=== PATIENT | male | born 1950 | race Caucasian/White ===

== ENCOUNTER 2019-04-11 05:07 | Observation (INO) ==
[2019-04-11] MEDS ORDERED: ONDANSETRON 4 MG/2 ML VIAL IV PRN (08:11)
[2019-04-11] MEDS ORDERED: ACETAMINOPHEN 325 MG TABLET PO PRN (08:11)
[2019-04-11] MEDS: ENOXAPARIN 100 MG/ML SYRINGE SUBCUT SCH ×2 (09:55→09:59)
[2019-04-11] MEDS: DILTIAZEM CD 240 MG CAPSULE PO SCH (09:57)
[2019-04-11] MEDS: PANTOPRAZOLE 40 MG TABLET PO SCH (09:58)
[2019-04-11] MEDS: METOPROLOL TARTRATE 50 MG TABLET PO SCH ×2 (09:58→21:16)
[2019-04-11] MEDS ORDERED: ALBUTEROL/IPRATROPIUM 3 ML NEB RESP TX PRN (20:14)
[2019-04-12 06:58] LABS: Basophils % 0.3 % (0.0-0.8); Eosinophils % 0.4 % (0.00-10.9); Hematocrit 26.6 VOL% (42.0-52.0); Hemoglobin 8.3 GM/DL (14.0-18.0); Immature Granulocytes % 6.9 %; Immature Granulocytes Absolute 0.75 #; Lymphocytes # 1.4 10*3/uL (1.4-4.0); Lymphocytes % 12.7 % (21.2-54.2); Mean Corpuscular HGB Conc 31.2 GM/DL (32-36); Mean Corpuscular Volume 94.7 FL (87-102); Mean Platelet Volume 11.1 FL (9.6-12.0); Monocytes % 20.4 % (1.7-12.7); NRBC # 0.12 10*3/uL; Neutrophils % 59.3 % (38.7-73.9); Platelet Count 92 T/CUMM (130-400); Red Blood Count 2.81 MC/CUMM (3.8-5.5); Red Cell Distribution Width 19.9 % (9.3-17.3); White Blood Count 10.9 T/CUMM (4-12)
[2019-04-12 07:18] LABS: Band Neutrophils 1 % (0-10); Eosinophils 1 % (0-10); Hypochromasia 1+; Lymphocytes 17 % (20-55); Platelet Estimate Decreased; Segmented Neutrophils 65 % (50-85); Total Cells Counted 100
[2019-04-12 07:29] LABS: Calcium 8.5 MG/DL (8.5-10.1)
[2019-04-12] MEDS: METOPROLOL TARTRATE 50 MG TABLET PO SCH ×2 (08:42→21:37)
[2019-04-12] MEDS: PANTOPRAZOLE 40 MG TABLET PO SCH (08:42)
[2019-04-12] MEDS: DILTIAZEM CD 240 MG CAPSULE PO SCH (08:42)
[2019-04-12 09:00] LABS: % Iron Saturation 28.7 % (18-50); Ferritin 342.2 ng/ml (26-388)
[2019-04-12] MEDS ORDERED: ASPIRIN EC 81 MG TABLET PO SCH (09:00)
[2019-04-12] MEDS ORDERED: RIVAROXABAN 10 MG TABLET PO SCH (09:00)
[2019-04-12] MEDS ORDERED: SODIUM CHLORIDE 0.9% 1,000 ML IV PRN (16:04)
[2019-04-13 06:25] LABS: Basophils % 0.3 % (0.0-0.8); Eosinophils # 0.1 10*3/uL (0.0-0.87); Eosinophils % 0.4 % (0.00-10.9); Hematocrit 28.9 VOL% (42.0-52.0); Hemoglobin 9.5 GM/DL (14.0-18.0); Immature Granulocytes % 6.5 %; Immature Granulocytes Absolute 0.82 #; Lymphocytes # 1.7 10*3/uL (1.4-4.0); Lymphocytes % 13.7 % (21.2-54.2); Mean Corpuscular HGB Conc 32.9 GM/DL (32-36); Mean Corpuscular Volume 93.5 FL (87-102); Mean Platelet Volume 10.8 FL (9.6-12.0); Monocytes % 23.5 % (1.7-12.7); NRBC # 0.13 10*3/uL; Neutrophils % 55.6 % (38.7-73.9); Red Blood Count 3.09 MC/CUMM (3.8-5.5); Red Cell Distribution Width 19.7 % (9.3-17.3); White Blood Count 12.7 T/CUMM (4-12)
[2019-04-13 06:28] LABS: Platelet Count 88 T/CUMM (130-400)
[2019-04-13 06:43] LABS: Calcium 8.1 MG/DL (8.5-10.1); Osmolality,Calculated 274.8 MOS/KG (273-304)
[2019-04-13 07:13] LABS: Band Neutrophils 2 % (0-10); Eosinophils 1 % (0-10); Hypochromasia 1+; Lymphocytes 16 % (20-55); Platelet Estimate Decreased; Segmented Neutrophils 62 % (50-85); Total Cells Counted 100
[2019-04-13] MEDS: PANTOPRAZOLE 40 MG TABLET PO SCH (09:24)
[2019-04-13] MEDS: METOPROLOL TARTRATE 50 MG TABLET PO SCH (09:24)
[2019-04-13] MEDS: DILTIAZEM CD 240 MG CAPSULE PO SCH (09:24)
[2019-04-13 12:23] VITALS: BP 125/65
== END 2019-04-13 14:36 | disposition home or self-care (01) ==
LOC: INTOOBSV 06:33 → N.TELES 06:33 → SUATTDRO 06:33
PROVIDERS: ADMIT Internal Medicine; ATTEND Internal Medicine

== ENCOUNTER 2019-05-03 11:54 | Inpatient (IN) ==
[2019-05-03] MEDS ORDERED: DILTIAZEM 50 MG/10 ML VIAL IV STA (12:25)
[2019-05-03] MEDS ORDERED: methylPREDNISolone SOD SUC 125 MG/2 ML VIAL IV STA (12:25)
[2019-05-03] MEDS ORDERED: ASPIRIN 325 MG TABLET PO STA (12:25)
[2019-05-03] MEDS ORDERED: ALBUTEROL/IPRATROPIUM 3 ML NEB RESP TX STA (12:25)
[2019-05-03] MEDS ORDERED: FUROSEMIDE 20 MG/2 ML VIAL IV STA (12:25)
[2019-05-03 12:31] LABS: Basophils % 0.3 % (0.0-0.8); Eosinophils % 0.2 % (0.00-10.9); Hematocrit 27.3 VOL% (42.0-52.0); Hemoglobin 8.6 GM/DL (14.0-18.0); Immature Granulocytes % 6.8 %; Immature Granulocytes Absolute 0.89 #; Lymphocytes # 1.5 10*3/uL (1.4-4.0); Lymphocytes % 11.3 % (21.2-54.2); Mean Corpuscular HGB Conc 31.5 GM/DL (32-36); Mean Corpuscular Volume 94.5 FL (87-102); Mean Platelet Volume 10.6 FL (9.6-12.0); Monocytes % 17.7 % (1.7-12.7); NRBC # 0.13 10*3/uL; Neutrophils % 63.7 % (38.7-73.9); Platelet Count 100 T/CUMM (130-400); Red Blood Count 2.89 MC/CUMM (3.8-5.5); Red Cell Distribution Width 19.5 % (9.3-17.3)
[2019-05-03 12:34] LABS: INR 1.3; PT Patient Result 14.2 SECS (9.6-12.2)
[2019-05-03 12:54] LABS: Albumin 2.8 G/DL (3.4-5.0); Bilirubin,Total 1.7 MG/DL (0.2-1.0); Osmolality,Calculated 279.4 MOS/KG (273-304); Thyroid Stimulating Hormone 3.62 uIU/ml (0.358-3.74); Total Protein 7.2 G/DL (6.4-8.3)
[2019-05-03 13:03] LABS: Anisocytosis 2+; Atypical Lymphocytes Few; Band Neutrophils 9 % (0-10); Lymphocytes 14 % (20-55); Macrocytosis Slight; Metamyelocytes 4 %; Nucleated Red Blood Cells 1 (0-5); Platelet Estimate Adequate; Segmented Neutrophils 59 % (50-85); Total Cells Counted 100
[2019-05-03] MEDS ORDERED: POTASSIUM CHLORIDE 20 MEQ TABLET PO STA (13:15)
[2019-05-03] MEDS ORDERED: cefTRIAXone 1,000 MG in SODIUM CHLORIDE 0.9% 100 ML IV STA (13:25)
[2019-05-03 13:26] LABS: Apearance,Urine CLEAR (Clear); Bilirubin,Urine Negative (Negative); Blood, Urine Small mg/dL (Negative); Glucose,Urine (UA) Negative (Negative); Ketones,Urine Negative (Negative); Mucus,Urine Occasional /LPF (Occasional); Nitrite,Urine Negative (Negative); Protein,Urine Negative; RBC,Urine 2 /HPF (0-4); Urine Color Yellow (Yellow); WBC,Urine <1 /HPF (0-6)
[2019-05-03] MEDS ORDERED: dilTIAZem Drip 125 MG/125 ML PREMIX IV ONE (13:28)
[2019-05-03] MEDS ORDERED: ENOXAPARIN 100 MG/ML SYRINGE SUBCUT STA (13:41)
[2019-05-03] MEDS ORDERED: SODIUM CHLORIDE 0.9% 2,400 ML IV ONE (13:43)
[2019-05-03] MEDS ORDERED: ALBUTEROL 2.5 MG/3 ML NEB RESP TX PRN (13:43)
[2019-05-03] MEDS ORDERED: MAGNESIUM SULF RIDER 2 GM in PREMIX 1 EACH IV PRN (13:51)
[2019-05-03] MEDS ORDERED: MAGNESIUM SULF RIDER 4 GM in PREMIX 1 EACH IV PRN (13:51)
[2019-05-03] MEDS ORDERED: ZALEPLON 5 MG CAPSULE PO PRN (13:52)
[2019-05-03] MEDS ORDERED: diphenhydrAMINE CAP 25 MG CAPSULE PO PRN (13:52)
[2019-05-03] MEDS ORDERED: NICOTINE 21 MG/24 HR PATCH TRANSDERM PRN (13:52)
[2019-05-03] MEDS ORDERED: guaiFENesin/DM ER 600-30 MG TABLET PO PRN (13:52)
[2019-05-03] MEDS ORDERED: ACETAMINOPHEN 325 MG TABLET PO PRN (13:52)
[2019-05-03] MEDS ORDERED: traZODone 50 MG TABLET PO PRN (13:52)
[2019-05-03] MEDS ORDERED: ONDANSETRON 4 MG/2 ML VIAL IV PRN (13:52)
[2019-05-03] MEDS: dilTIAZem Drip 125 MG/125 ML PREMIX IV SCH ×2 (14:00→21:48)
[2019-05-03] MEDS: HEPARIN 5,000 UNIT/1 ML VIAL SUBCUT SCH ×2 (15:38→21:49)
[2019-05-03] MEDS: AZITHROMYCIN INJ 500 MG in SODIUM CHLORIDE 0.9% 250 ML IV SCH (15:39)
[2019-05-03] MEDS: ALBUTEROL/IPRATROPIUM 3 ML NEB RESP TX SCH (19:27)
[2019-05-03] MEDS: DOCUSATE SODIUM 100 MG CAPSULE PO SCH (20:22)
[2019-05-03] MEDS: methylPREDNISolone SOD SUC 40 MG/1 ML VIAL IV SCH (20:22)
[2019-05-03] MEDS: METOPROLOL TARTRATE 50 MG TABLET PO SCH (20:22)
[2019-05-04] MEDS: ALBUTEROL/IPRATROPIUM 3 ML NEB RESP TX SCH ×4 (00:13→19:23)
[2019-05-04] MEDS: methylPREDNISolone SOD SUC 40 MG/1 ML VIAL IV SCH ×4 (01:05→21:49)
[2019-05-04 05:56] LABS: Basophils % 0.3 % (0.0-0.8); Hematocrit 24.7 VOL% (42.0-52.0); Hemoglobin 7.7 GM/DL (14.0-18.0); Immature Granulocytes % 7.9 %; Immature Granulocytes Absolute 1.26 #; Lymphocytes # 0.9 10*3/uL (1.4-4.0); Lymphocytes % 5.6 % (21.2-54.2); Mean Corpuscular HGB Conc 31.2 GM/DL (32-36); Mean Corpuscular Volume 93.9 FL (87-102); Mean Platelet Volume 10.8 FL (9.6-12.0); Monocytes % 10.1 % (1.7-12.7); NRBC # 0.11 10*3/uL; Neutrophils % 76.1 % (38.7-73.9); Platelet Count 89 T/CUMM (130-400); Red Blood Count 2.63 MC/CUMM (3.8-5.5); Red Cell Distribution Width 19.3 % (9.3-17.3)
[2019-05-04 06:15] LABS: Band Neutrophils 1 % (0-10); Hypochromasia 1+; Lymphocytes 6 % (20-55); Nucleated Red Blood Cells 1 (0-5); Ovalocytes Slight; Platelet Estimate Decreased; Segmented Neutrophils 88 % (50-85); Total Cells Counted 100
[2019-05-04 06:18] LABS: Albumin 2.8 G/DL (3.4-5.0); Bilirubin,Total 1.8 MG/DL (0.2-1.0); Calcium 8.1 MG/DL (8.5-10.1); Osmolality,Calculated 285.8 MOS/KG (273-304); Total Protein 7.5 G/DL (6.4-8.3)
[2019-05-04] MEDS: HEPARIN 5,000 UNIT/1 ML VIAL SUBCUT SCH ×3 (06:32→22:00)
[2019-05-04] MEDS ORDERED: SODIUM CHLORIDE 0.9% 1,000 ML IV PRN (06:52)
[2019-05-04] MEDS ORDERED: FUROSEMIDE 20 MG/2 ML VIAL IV SCH (07:00)
[2019-05-04] MEDS: DOCUSATE SODIUM 100 MG CAPSULE PO SCH ×2 (09:20→21:50)
[2019-05-04] MEDS: ASPIRIN EC 81 MG TABLET PO SCH (09:20)
[2019-05-04] MEDS: METOPROLOL TARTRATE 50 MG TABLET PO SCH (09:20)
[2019-05-04] MEDS: DILTIAZEM CD 240 MG CAPSULE PO SCH (09:21)
[2019-05-04] MEDS: PANTOPRAZOLE 40 MG TABLET PO SCH (09:21)
[2019-05-04] MEDS: dilTIAZem Drip 125 MG/125 ML PREMIX IV SCH (13:07)
[2019-05-04] MEDS: AZITHROMYCIN INJ 500 MG in SODIUM CHLORIDE 0.9% 250 ML IV SCH (13:12)
[2019-05-04] MEDS: METOPROLOL TARTRATE 100 MG TABLET PO SCH (21:50)
[2019-05-05] MEDS: ALBUTEROL/IPRATROPIUM 3 ML NEB RESP TX SCH ×4 (00:20→19:50)
[2019-05-05] MEDS: methylPREDNISolone SOD SUC 40 MG/1 ML VIAL IV SCH ×4 (02:05→20:08)
[2019-05-05] MEDS: dilTIAZem Drip 125 MG/125 ML PREMIX IV SCH ×2 (04:00→15:09)
[2019-05-05 04:43] LABS: Basophils # 0.1 10*3/uL (0.0-0.2); Basophils % 0.3 % (0.0-0.8); Hematocrit 29.2 VOL% (42.0-52.0); Hemoglobin 9.3 GM/DL (14.0-18.0); Immature Granulocytes % 7.7 %; Immature Granulocytes Absolute 2.34 #; Lymphocytes # 1.2 10*3/uL (1.4-4.0); Lymphocytes % 3.8 % (21.2-54.2); Mean Corpuscular HGB Conc 31.8 GM/DL (32-36); Mean Corpuscular Volume 92.4 FL (87-102); Mean Platelet Volume 10.8 FL (9.6-12.0); Monocytes % 12.8 % (1.7-12.7); NRBC # 0.28 10*3/uL; Neutrophils % 75.4 % (38.7-73.9); Platelet Count 103 T/CUMM (130-400); Red Blood Count 3.16 MC/CUMM (3.8-5.5); Red Cell Distribution Width 19.4 % (9.3-17.3); White Blood Count 30.3 T/CUMM (4-12)
[2019-05-05 05:15] LABS: Albumin 2.9 G/DL (3.4-5.0); Bilirubin,Total 2.3 MG/DL (0.2-1.0); Calcium 8.4 MG/DL (8.5-10.1); Osmolality,Calculated 286.8 MOS/KG (273-304); Total Protein 7.2 G/DL (6.4-8.3)
[2019-05-05 05:22] LABS: Band Neutrophils 1 % (0-10); Hypochromasia Slight; Lymphocytes 2 % (20-55); Nucleated Red Blood Cells 2 (0-5); Platelet Estimate Decreased; Segmented Neutrophils 89 % (50-85); Total Cells Counted 100
[2019-05-05] MEDS: HEPARIN 5,000 UNIT/1 ML VIAL SUBCUT SCH ×3 (06:15→21:40)
[2019-05-05] MEDS: VANCOMYCIN INJ 1,250 MG in SODIUM CHLORIDE 0.9% 250 ML IV SCH ×2 (09:56→20:10)
[2019-05-05] MEDS: METOPROLOL TARTRATE 100 MG TABLET PO SCH ×2 (10:10→21:40)
[2019-05-05] MEDS: DILTIAZEM CD 240 MG CAPSULE PO SCH (10:10)
[2019-05-05] MEDS: PANTOPRAZOLE 40 MG TABLET PO SCH (10:11)
[2019-05-05] MEDS: ASPIRIN EC 81 MG TABLET PO SCH (10:11)
[2019-05-05] MEDS: DOCUSATE SODIUM 100 MG CAPSULE PO SCH ×2 (10:11→21:40)
[2019-05-05] MEDS: cefTRIAXone 1,000 MG in SYRINGE 1 EACH IV SCH (15:15)
[2019-05-05] MEDS: AZITHROMYCIN INJ 500 MG in SODIUM CHLORIDE 0.9% 250 ML IV SCH (15:17)
[2019-05-06] MEDS: ALBUTEROL/IPRATROPIUM 3 ML NEB RESP TX SCH ×4 (00:56→19:55)
[2019-05-06] MEDS: methylPREDNISolone SOD SUC 40 MG/1 ML VIAL IV SCH ×3 (02:06→13:55)
[2019-05-06] MEDS: HEPARIN 5,000 UNIT/1 ML VIAL SUBCUT SCH ×3 (06:05→21:17)
[2019-05-06 06:36] LABS: Basophils # 0.2 10*3/uL (0.0-0.2); Basophils % 0.4 % (0.0-0.8); Hematocrit 33.3 VOL% (42.0-52.0); Hemoglobin 10.4 GM/DL (14.0-18.0); Immature Granulocytes % 9.3 %; Lymphocytes # 1.1 10*3/uL (1.4-4.0); Mean Corpuscular HGB Conc 31.2 GM/DL (32-36); Mean Corpuscular Volume 93.8 FL (87-102); Mean Platelet Volume 11.1 FL (9.6-12.0); Monocytes % 14.3 % (1.7-12.7); NRBC # 0.47 10*3/uL; Platelet Count 132 T/CUMM (130-400); Red Blood Count 3.55 MC/CUMM (3.8-5.5); Red Cell Distribution Width 20.1 % (9.3-17.3); White Blood Count 37.8 T/CUMM (4-12)
[2019-05-06 07:00] LABS: Bilirubin,Total 1.8 MG/DL (0.2-1.0); Calcium 8.5 MG/DL (8.5-10.1); Osmolality,Calculated 293.5 MOS/KG (273-304); Total Protein 7.5 G/DL (6.4-8.3)
[2019-05-06 07:00] LABS: Band Neutrophils 1 % (0-10); Eosinophils 1 % (0-10); Hypochromasia Slight; Lymphocytes 4 % (20-55); Nucleated Red Blood Cells 4 (0-5); Segmented Neutrophils 81 % (50-85); Total Cells Counted 100
[2019-05-06 07:19] LABS: Folate 6.9 NG/ML (5.4-24.0); Vitamin B12 > 2000 PG/ML (211-911)
[2019-05-06 07:21] LABS: % Iron Saturation 49.1 % (18-50); Ferritin 616.6 ng/ml (26-388)
[2019-05-06] MEDS ORDERED: METOPROLOL TARTRATE 5 MG/5 ML VIAL IV ONE (09:07)
[2019-05-06] MEDS ORDERED: DILTIAZEM CD 180 MG CAPSULE PO SCH (09:07)
[2019-05-06] MEDS: ASPIRIN EC 81 MG TABLET PO SCH (09:13)
[2019-05-06] MEDS: METOPROLOL TARTRATE 100 MG TABLET PO SCH ×2 (09:13→21:16)
[2019-05-06] MEDS: PANTOPRAZOLE 40 MG TABLET PO SCH (09:13)
[2019-05-06] MEDS: DOCUSATE SODIUM 100 MG CAPSULE PO SCH ×2 (09:13→21:16)
[2019-05-06] MEDS: DILTIAZEM CD 240 MG CAPSULE PO SCH ×2 (09:50→09:58)
[2019-05-06] MEDS: VANCOMYCIN INJ 1,250 MG in SODIUM CHLORIDE 0.9% 250 ML IV SCH ×2 (09:52→21:18)
[2019-05-06] MEDS: cefTRIAXone 1,000 MG in SYRINGE 1 EACH IV SCH (15:02)
[2019-05-06] MEDS: AZITHROMYCIN INJ 500 MG in SODIUM CHLORIDE 0.9% 250 ML IV SCH (15:02)
[2019-05-06] MEDS: dilTIAZem Drip 125 MG/125 ML PREMIX IV SCH ×2 (15:19→18:06)
[2019-05-06] MEDS: FUROSEMIDE 40 MG/4 ML VIAL IV SCH (16:05)
[2019-05-06] MEDS: BUDESONIDE 0.5 MG/2 ML NEB RESP TX SCH (19:55)
[2019-05-06] MEDS: DORNASE ALFA 2.5 MG/2.5 ML VIAL RESP TX SCH (20:06)
[2019-05-07] MEDS: ALBUTEROL/IPRATROPIUM 3 ML NEB RESP TX SCH ×4 (01:05→20:03)
[2019-05-07 05:14] LABS: Basophils # 0.2 10*3/uL (0.0-0.2); Basophils % 0.5 % (0.0-0.8); Eosinophils # 0.1 10*3/uL (0.0-0.87); Eosinophils % 0.1 % (0.00-10.9); Hematocrit 31.2 VOL% (42.0-52.0); Hemoglobin 9.9 GM/DL (14.0-18.0); Immature Granulocytes % 10.2 %; Immature Granulocytes Absolute 3.92 #; Lymphocytes # 1.3 10*3/uL (1.4-4.0); Lymphocytes % 3.3 % (21.2-54.2); Mean Corpuscular HGB Conc 31.7 GM/DL (32-36); Mean Corpuscular Volume 92.3 FL (87-102); Mean Platelet Volume 10.8 FL (9.6-12.0); NRBC # 0.64 10*3/uL; Neutrophils % 66.9 % (38.7-73.9); Platelet Count 123 T/CUMM (130-400); Red Blood Count 3.38 MC/CUMM (3.8-5.5); Red Cell Distribution Width 19.4 % (9.3-17.3); White Blood Count 38.3 T/CUMM (4-12)
[2019-05-07 05:56] LABS: Albumin 3.1 G/DL (3.4-5.0); Bilirubin,Total 1.7 MG/DL (0.2-1.0); Calcium 8.3 MG/DL (8.5-10.1); Osmolality,Calculated 284.8 MOS/KG (273-304)
[2019-05-07] MEDS: HEPARIN 5,000 UNIT/1 ML VIAL SUBCUT SCH ×3 (06:03→22:43)
[2019-05-07 06:19] LABS: Hypochromasia 1+; Lymphocytes 5 % (20-55); Microcytosis 1+; Platelet Estimate Decreased; Polychromasia Few; Segmented Neutrophils 76 % (50-85); Total Cells Counted 100
[2019-05-07] MEDS: BUDESONIDE 0.5 MG/2 ML NEB RESP TX SCH ×2 (08:10→20:03)
[2019-05-07] MEDS: DORNASE ALFA 2.5 MG/2.5 ML VIAL RESP TX SCH ×2 (08:10→20:03)
[2019-05-07] MEDS: FUROSEMIDE 40 MG/4 ML VIAL IV SCH (09:21)
[2019-05-07] MEDS ORDERED: FUROSEMIDE 40 MG TABLET PO SCH (09:30)
[2019-05-07] MEDS: PANTOPRAZOLE 40 MG TABLET PO SCH (10:16)
[2019-05-07] MEDS: ASPIRIN EC 81 MG TABLET PO SCH (10:16)
[2019-05-07] MEDS: METOPROLOL TARTRATE 100 MG TABLET PO SCH ×2 (10:17→21:00)
[2019-05-07] MEDS: DOCUSATE SODIUM 100 MG CAPSULE PO SCH ×2 (10:17→21:00)
[2019-05-07] MEDS: DILTIAZEM CD 240 MG CAPSULE PO SCH (10:17)
[2019-05-07] MEDS: VANCOMYCIN INJ 1,500 MG in SODIUM CHLORIDE 0.9% 500 ML IV SCH ×2 (10:24→20:40)
[2019-05-07] MEDS: cefTRIAXone 1,000 MG in SYRINGE 1 EACH IV SCH (14:21)
[2019-05-07] MEDS: AZITHROMYCIN INJ 500 MG in SODIUM CHLORIDE 0.9% 250 ML IV SCH (14:38)
[2019-05-08] MEDS: ALBUTEROL/IPRATROPIUM 3 ML NEB RESP TX SCH ×3 (00:23→13:43)
[2019-05-08] MEDS: HEPARIN 5,000 UNIT/1 ML VIAL SUBCUT SCH ×2 (05:46→13:55)
[2019-05-08 06:13] LABS: Basophils # 0.1 10*3/uL (0.0-0.2); Basophils % 0.5 % (0.0-0.8); Eosinophils # 0.1 10*3/uL (0.0-0.87); Eosinophils % 0.4 % (0.00-10.9); Hematocrit 30.4 VOL% (42.0-52.0); Hemoglobin 9.6 GM/DL (14.0-18.0); Immature Granulocytes % 13.4 %; Immature Granulocytes Absolute 2.68 #; Lymphocytes # 1.4 10*3/uL (1.4-4.0); Lymphocytes % 6.8 % (21.2-54.2); Mean Corpuscular HGB Conc 31.6 GM/DL (32-36); Mean Corpuscular Volume 92.4 FL (87-102); Mean Platelet Volume 10.9 FL (9.6-12.0); Monocytes % 25.8 % (1.7-12.7); NRBC # 0.58 10*3/uL; Neutrophils % 53.1 % (38.7-73.9); Red Blood Count 3.29 MC/CUMM (3.8-5.5)
[2019-05-08 06:16] LABS: Platelet Count 95 T/CUMM (130-400)
[2019-05-08 06:33] LABS: Calcium 7.8 MG/DL (8.5-10.1); Osmolality,Calculated 286.3 MOS/KG (273-304)
[2019-05-08 06:49] LABS: Band Neutrophils 5 % (0-10); Eosinophils 2 % (0-10); Lymphocytes 8 % (20-55); Nucleated Red Blood Cells 5 (0-5); Segmented Neutrophils 47 % (50-85); Total Cells Counted 100
[2019-05-08 06:50] LABS: Hypochromasia 2+; Platelet Estimate Decreased
[2019-05-08 06:52] LABS: Atypical Lymphocytes Few
[2019-05-08] MEDS ORDERED: POTASSIUM CHLORIDE 20 MEQ TABLET PO PRN (07:30)
[2019-05-08] MEDS ORDERED: POTASSIUM CHLORIDE 20 MEQ TABLET PO ONE (07:30)
[2019-05-08] MEDS: DORNASE ALFA 2.5 MG/2.5 ML VIAL RESP TX SCH (07:35)
[2019-05-08] MEDS: BUDESONIDE 0.5 MG/2 ML NEB RESP TX SCH (07:35)
[2019-05-08] MEDS: METOPROLOL TARTRATE 100 MG TABLET PO SCH (09:25)
[2019-05-08] MEDS: ASPIRIN EC 81 MG TABLET PO SCH (09:25)
[2019-05-08] MEDS: DILTIAZEM CD 240 MG CAPSULE PO SCH (09:25)
[2019-05-08] MEDS: DOCUSATE SODIUM 100 MG CAPSULE PO SCH (09:25)
[2019-05-08] MEDS: PANTOPRAZOLE 40 MG TABLET PO SCH (09:26)
[2019-05-08] MEDS: VANCOMYCIN INJ 1,500 MG in SODIUM CHLORIDE 0.9% 500 ML IV SCH (09:26)
[2019-05-08] MEDS ORDERED: POTASSIUM CHLORIDE 20 MEQ TABLET PO SCH (13:00)
[2019-05-08] MEDS ORDERED: ASCORBIC ACID 500 MG TABLET PO SCH (13:00)
[2019-05-08] MEDS: cefTRIAXone 1,000 MG in SYRINGE 1 EACH IV SCH (13:33)
[2019-05-08] MEDS: AZITHROMYCIN INJ 500 MG in SODIUM CHLORIDE 0.9% 250 ML IV SCH (13:55)
[2019-05-08 16:46] VITALS: BP 105/63
== END 2019-05-08 16:55 | disposition home health service (06) | DRG 871 ==
LOC: EDUNIT# → EDBD → N.ED 11:54 → N.EDINP 13:51 → N.TELES 14:39
PROVIDERS: ADMIT Internal Medicine; ATTEND Internal Medicine

== ENCOUNTER 2019-06-01 13:41 | Inpatient (IN) ==
[2019-06-01 15:12] LABS: Basophils % 0.3 % (0.0-0.8); Eosinophils % 0.1 % (0.00-10.9); Hematocrit 22.6 VOL% (42.0-52.0); Hemoglobin 7.1 GM/DL (14.0-18.0); Immature Granulocytes % 4.3 %; Immature Granulocytes Absolute 0.49 #; Lymphocytes # 1.8 10*3/uL (1.4-4.0); Lymphocytes % 15.5 % (21.2-54.2); Mean Corpuscular HGB Conc 31.4 GM/DL (32-36); Mean Platelet Volume 12.1 FL (9.6-12.0); Monocytes % 12.4 % (1.7-12.7); NRBC # 0.08 10*3/uL; Neutrophils % 67.4 % (38.7-73.9); Platelet Count 132 T/CUMM (130-400); Red Blood Count 2.38 MC/CUMM (3.8-5.5); Red Cell Distribution Width 20.5 % (9.3-17.3); White Blood Count 11.4 T/CUMM (4-12)
[2019-06-01 15:18] LABS: INR 1.5; PT Patient Result 16.7 SECS (9.6-12.2); Partial Thromboplastin Time 28.3 SECS (20.8-36.0)
[2019-06-01 15:26] LABS: Albumin 2.8 G/DL (3.4-5.0); Bilirubin,Total 3.6 MG/DL (0.2-1.0); Calcium 8.1 MG/DL (8.5-10.1); Total Protein 7.3 G/DL (6.4-8.3)
[2019-06-01] MEDS ORDERED: ALBUTEROL/IPRATROPIUM 3 ML NEB RESP TX PRN (17:05)
[2019-06-01] MEDS ORDERED: SODIUM CHLORIDE 0.9% 1,000 ML IV PRN (17:07)
[2019-06-01] MEDS ORDERED: METOPROLOL TARTRATE 100 MG TABLET PO SCH (21:00)
[2019-06-01] MEDS ORDERED: FUROSEMIDE 40 MG/4 ML VIAL IV ONE (23:33)
[2019-06-02] MEDS: PIPERACILLIN/TAZOBACTAM 3,375 MG in SODIUM CHLORIDE 0.9% 100 ML IV SCH ×3 (03:34→23:33)
[2019-06-02 04:58] LABS: Basophils % 0.4 % (0.0-0.8); Eosinophils % 0.2 % (0.00-10.9); Hematocrit 24.7 VOL% (42.0-52.0); Hemoglobin 8.1 GM/DL (14.0-18.0); Immature Granulocytes % 5.5 %; Immature Granulocytes Absolute 0.46 #; Lymphocytes % 11.9 % (21.2-54.2); Mean Corpuscular HGB Conc 32.8 GM/DL (32-36); Mean Corpuscular Volume 92.2 FL (87-102); Mean Platelet Volume 11.2 FL (9.6-12.0); Monocytes % 12.6 % (1.7-12.7); NRBC # 0.03 10*3/uL; Neutrophils % 69.4 % (38.7-73.9); Platelet Count 121 T/CUMM (130-400); Red Blood Count 2.68 MC/CUMM (3.8-5.5); Red Cell Distribution Width 18.8 % (9.3-17.3); White Blood Count 8.4 T/CUMM (4-12)
[2019-06-02 05:21] LABS: Osmolality,Calculated 280.7 MOS/KG (273-304)
[2019-06-02 05:27] LABS: Band Neutrophils 3 % (0-10); Hypochromasia 1+; Lymphocytes 13 % (20-55); Microcytosis 1+; Polychromasia Slight; Segmented Neutrophils 71 % (50-85); Total Cells Counted 100
[2019-06-02 05:28] LABS: Platelet Estimate Adequate
[2019-06-02] MEDS ORDERED: SODIUM CHLORIDE 0.9% 1,000 ML IV PRN (07:59)
[2019-06-02 08:17] LABS: Apearance,Urine CLEAR (Clear); Bilirubin,Urine Negative (Negative); Blood, Urine Negative (Negative); Glucose,Urine (UA) Negative (Negative); Ketones,Urine Negative (Negative); Mucus,Urine Occasional /LPF (Occasional); Nitrite,Urine Negative (Negative); Protein,Urine Negative; RBC,Urine 1 /HPF (0-4); Urine Color Amber (Yellow); Urine Specific Gravity 1.015 (1.001-1.035); WBC,Urine 1 /HPF (0-6)
[2019-06-02] MEDS: DILTIAZEM CD 240 MG CAPSULE PO SCH (08:44)
[2019-06-02] MEDS: POTASSIUM CHLORIDE 10 MEQ TABLET PO SCH (08:44)
[2019-06-02] MEDS: PANTOPRAZOLE 40 MG TABLET PO SCH (08:44)
[2019-06-02] MEDS: ASPIRIN EC 81 MG TABLET PO SCH (08:44)
[2019-06-03 05:54] LABS: Basophils % 0.4 % (0.0-0.8); Hematocrit 30.2 VOL% (42.0-52.0); Hemoglobin 9.8 GM/DL (14.0-18.0); Immature Granulocytes % 4.3 %; Immature Granulocytes Absolute 0.33 #; Lymphocytes # 0.9 10*3/uL (1.4-4.0); Lymphocytes % 12.2 % (21.2-54.2); Mean Corpuscular HGB Conc 32.5 GM/DL (32-36); Mean Platelet Volume 10.5 FL (9.6-12.0); NRBC # 0.02 10*3/uL; Neutrophils % 64.1 % (38.7-73.9); Platelet Count 112 T/CUMM (130-400); Red Blood Count 3.32 MC/CUMM (3.8-5.5); Red Cell Distribution Width 19.1 % (9.3-17.3); White Blood Count 7.6 T/CUMM (4-12)
[2019-06-03 06:17] LABS: Anisocytosis 1+; Band Neutrophils 1 % (0-10); Eosinophils 1 % (0-10); Hypochromasia 1+; Lymphocytes 9 % (20-55); Microcytosis 1+; Segmented Neutrophils 75 % (50-85); Total Cells Counted 100
[2019-06-03 06:18] LABS: Albumin 2.6 G/DL (3.4-5.0); Bilirubin,Total 4.2 MG/DL (0.2-1.0); Calcium 8.3 MG/DL (8.5-10.1); Osmolality,Calculated 279.7 MOS/KG (273-304); Platelet Estimate Decreased
[2019-06-03] MEDS: PIPERACILLIN/TAZOBACTAM 3,375 MG in SODIUM CHLORIDE 0.9% 100 ML IV SCH ×2 (07:48→16:53)
[2019-06-03] MEDS ORDERED: POTASSIUM CHLORIDE 20 MEQ TABLET PO ONE (08:09)
[2019-06-03] MEDS: DILTIAZEM CD 240 MG CAPSULE PO SCH (08:44)
[2019-06-03] MEDS: ASPIRIN EC 81 MG TABLET PO SCH (08:44)
[2019-06-03] MEDS: POTASSIUM CHLORIDE 10 MEQ TABLET PO SCH (08:44)
[2019-06-03] MEDS: PANTOPRAZOLE 40 MG TABLET PO SCH (08:44)
[2019-06-03] MEDS ORDERED: METOPROLOL TARTRATE 5 MG/5 ML VIAL IV ONE (09:15)
[2019-06-03] MEDS ORDERED: MAGNESIUM SULF RIDER 4 GM in PREMIX 1 EACH IV PRN (17:34)
[2019-06-03] MEDS ORDERED: MAGNESIUM SULF RIDER 2 GM in PREMIX 1 EACH IV PRN (17:34)
[2019-06-04] MEDS: PIPERACILLIN/TAZOBACTAM 3,375 MG in SODIUM CHLORIDE 0.9% 100 ML IV SCH ×3 (00:46→15:54)
[2019-06-04 05:15] LABS: Basophils % 0.3 % (0.0-0.8); Eosinophils % 0.3 % (0.00-10.9); Hematocrit 26.9 VOL% (42.0-52.0); Hemoglobin 8.8 GM/DL (14.0-18.0); Immature Granulocytes % 5.2 %; Immature Granulocytes Absolute 0.35 #; Lymphocytes % 15.2 % (21.2-54.2); Mean Corpuscular HGB Conc 32.7 GM/DL (32-36); Mean Corpuscular Volume 91.2 FL (87-102); Mean Platelet Volume 10.9 FL (9.6-12.0); Monocytes % 21.5 % (1.7-12.7); NRBC # 0.02 10*3/uL; Neutrophils % 57.5 % (38.7-73.9); Red Blood Count 2.95 MC/CUMM (3.8-5.5); Red Cell Distribution Width 18.9 % (9.3-17.3); White Blood Count 6.8 T/CUMM (4-12)
[2019-06-04 05:24] LABS: Platelet Count 93 T/CUMM (130-400)
[2019-06-04 05:34] LABS: Calcium 8.1 MG/DL (8.5-10.1); Osmolality,Calculated 278.7 MOS/KG (273-304)
[2019-06-04 05:40] LABS: Band Neutrophils 4 % (0-10); Eosinophils 1 % (0-10); Lymphocytes 20 % (20-55); Segmented Neutrophils 63 % (50-85); Total Cells Counted 100
[2019-06-04 05:41] LABS: Anisocytosis 1+; Platelet Estimate Adequate
[2019-06-04] MEDS ORDERED: METOPROLOL TARTRATE 5 MG/5 ML VIAL IV ONE ×2 (06:34→07:33)
[2019-06-04] MEDS ORDERED: MAGNESIUM SULF RIDER 2 GM in PREMIX 1 EACH IV ONE (06:41)
[2019-06-04] MEDS: POTASSIUM CHLORIDE RIDER 10 MEQ in PREMIX 1 EACH IV SCH ×4 (07:15→14:01)
[2019-06-04] MEDS: METOPROLOL TARTRATE 5 MG/5 ML VIAL IV SCH (07:44)
[2019-06-04] MEDS: ASPIRIN EC 81 MG TABLET PO SCH (09:50)
[2019-06-04] MEDS: PANTOPRAZOLE 40 MG TABLET PO SCH (09:51)
[2019-06-04] MEDS: MAGNESIUM OXIDE 400 MG TABLET PO SCH ×2 (09:51→20:08)
[2019-06-04] MEDS: DILTIAZEM CD 240 MG CAPSULE PO SCH (09:51)
[2019-06-04] MEDS: METOPROLOL TARTRATE 100 MG TABLET PO SCH ×2 (09:51→20:08)
[2019-06-04] MEDS: POTASSIUM CHLORIDE 20 MEQ TABLET PO SCH ×2 (09:51→20:08)
[2019-06-04] MEDS ORDERED: POTASSIUM CHLORIDE RIDER 10 MEQ in PREMIX 1 EACH IV SCH (14:00)
[2019-06-05] MEDS: PIPERACILLIN/TAZOBACTAM 3,375 MG in SODIUM CHLORIDE 0.9% 100 ML IV SCH ×4 (00:32→23:46)
[2019-06-05 04:48] LABS: Basophils % 0.4 % (0.0-0.8); Eosinophils # 0.1 10*3/uL (0.0-0.87); Eosinophils % 0.6 % (0.00-10.9); Hematocrit 26.4 VOL% (42.0-52.0); Hemoglobin 8.6 GM/DL (14.0-18.0); Immature Granulocytes % 4.9 %; Immature Granulocytes Absolute 0.51 #; Lymphocytes # 1.4 10*3/uL (1.4-4.0); Mean Corpuscular HGB Conc 32.6 GM/DL (32-36); Mean Platelet Volume 11.1 FL (9.6-12.0); NRBC # 0.04 10*3/uL; Neutrophils % 57.1 % (38.7-73.9); Red Blood Count 2.87 MC/CUMM (3.8-5.5); Red Cell Distribution Width 19.1 % (9.3-17.3); White Blood Count 10.3 T/CUMM (4-12)
[2019-06-05 04:49] LABS: Platelet Count 84 T/CUMM (130-400)
[2019-06-05 05:10] LABS: Calcium 8.1 MG/DL (8.5-10.1); Osmolality,Calculated 277.8 MOS/KG (273-304)
[2019-06-05 05:21] LABS: Albumin 2.6 G/DL (3.4-5.0); Bilirubin,Direct 1.81 MG/DL (0.0-0.20); Bilirubin,Indirect 1.8 MG/DL (0.0-1.0); Bilirubin,Total 3.6 MG/DL (0.2-1.0); Total Protein 6.5 G/DL (6.4-8.3)
[2019-06-05 06:12] LABS: Band Neutrophils 6 % (0-10); Eosinophils 4 % (0-10); Total Cells Counted 100
[2019-06-05 06:13] LABS: Lymphocytes 16 % (20-55); Metamyelocytes 3 %; Myelocytes 1 %; Nucleated Red Blood Cells 2 (0-5); Platelet Estimate Decreased; Segmented Neutrophils 49 % (50-85)
[2019-06-05 06:14] LABS: Anisocytosis Slight; Macrocytosis Slight
[2019-06-05] MEDS: ACETAMINOPHEN 325 MG TABLET PO PRN ×2 (07:42→16:09)
[2019-06-05] MEDS: DILTIAZEM CD 240 MG CAPSULE PO SCH (08:25)
[2019-06-05] MEDS: ASPIRIN EC 81 MG TABLET PO SCH (08:26)
[2019-06-05] MEDS: POTASSIUM CHLORIDE 20 MEQ TABLET PO SCH ×2 (08:26→21:12)
[2019-06-05] MEDS: METOPROLOL TARTRATE 100 MG TABLET PO SCH ×2 (08:26→21:11)
[2019-06-05] MEDS: PANTOPRAZOLE 40 MG TABLET PO SCH (08:26)
[2019-06-05] MEDS: MAGNESIUM OXIDE 400 MG TABLET PO SCH ×2 (08:26→21:11)
[2019-06-05] MEDS ORDERED: MAGNESIUM SULF RIDER 2 GM in PREMIX 1 EACH IV ONE (08:33)
[2019-06-05] MEDS ORDERED: FUROSEMIDE 40 MG/4 ML VIAL IV ONE (12:06)
[2019-06-05] MEDS: LACTATED RINGERS 1,000 ML IV SCH (12:06)
[2019-06-06 04:43] LABS: Basophils % 0.3 % (0.0-0.8); Eosinophils % 0.3 % (0.00-10.9); Hemoglobin 8.2 GM/DL (14.0-18.0); Immature Granulocytes % 4.7 %; Immature Granulocytes Absolute 0.62 #; Lymphocytes # 1.4 10*3/uL (1.4-4.0); Lymphocytes % 10.5 % (21.2-54.2); Mean Corpuscular HGB Conc 31.5 GM/DL (32-36); Mean Corpuscular Volume 91.2 FL (87-102); Mean Platelet Volume 11.1 FL (9.6-12.0); Monocytes % 19.5 % (1.7-12.7); NRBC # 0.05 10*3/uL; Neutrophils % 64.7 % (38.7-73.9); Red Blood Count 2.85 MC/CUMM (3.8-5.5); Red Cell Distribution Width 18.4 % (9.3-17.3); White Blood Count 13.3 T/CUMM (4-12)
[2019-06-06 04:47] LABS: Platelet Count 87 T/CUMM (130-400)
[2019-06-06 05:13] LABS: Atypical Lymphocytes Few; Band Neutrophils 2 % (0-10); Eosinophils 2 % (0-10); Hypochromasia 1+; Lymphocytes 18 % (20-55); Nucleated Red Blood Cells 2 (0-5); Segmented Neutrophils 64 % (50-85); Total Cells Counted 100
[2019-06-06 05:14] LABS: Microcytosis 1+; Platelet Estimate Decreased
[2019-06-06 05:43] LABS: Calcium 8.4 MG/DL (8.5-10.1); Osmolality,Calculated 277.8 MOS/KG (273-304)
[2019-06-06 06:02] LABS: Albumin 2.7 G/DL (3.4-5.0); Bilirubin,Direct 1.99 MG/DL (0.0-0.20); Bilirubin,Indirect 1.8 MG/DL (0.0-1.0); Bilirubin,Total 3.8 MG/DL (0.2-1.0); Calcium 8.2 MG/DL (8.5-10.1); Osmolality,Calculated 277.8 MOS/KG (273-304); Total Protein 7.3 G/DL (6.4-8.3)
[2019-06-06] MEDS: PIPERACILLIN/TAZOBACTAM 3,375 MG in SODIUM CHLORIDE 0.9% 100 ML IV SCH ×2 (07:33→15:36)
[2019-06-06] MEDS: METOPROLOL TARTRATE 100 MG TABLET PO SCH ×2 (09:21→21:06)
[2019-06-06] MEDS: ASPIRIN EC 81 MG TABLET PO SCH (09:21)
[2019-06-06] MEDS: POTASSIUM CHLORIDE 20 MEQ TABLET PO SCH ×2 (09:21→21:06)
[2019-06-06] MEDS: DILTIAZEM CD 240 MG CAPSULE PO SCH (09:21)
[2019-06-06] MEDS: PANTOPRAZOLE 40 MG TABLET PO SCH (09:21)
[2019-06-06] MEDS: MAGNESIUM OXIDE 400 MG TABLET PO SCH ×2 (09:21→21:06)
[2019-06-07 04:56] LABS: Basophils # 0.1 10*3/uL (0.0-0.2); Basophils % 0.4 % (0.0-0.8); Eosinophils # 0.1 10*3/uL (0.0-0.87); Eosinophils % 0.6 % (0.00-10.9); Hemoglobin 8.2 GM/DL (14.0-18.0); Immature Granulocytes % 6.5 %; Immature Granulocytes Absolute 0.84 #; Lymphocytes # 1.6 10*3/uL (1.4-4.0); Lymphocytes % 12.7 % (21.2-54.2); Mean Corpuscular HGB Conc 31.5 GM/DL (32-36); Mean Corpuscular Volume 91.5 FL (87-102); Monocytes % 18.1 % (1.7-12.7); NRBC # 0.04 10*3/uL; Neutrophils % 61.7 % (38.7-73.9); Platelet Count 90 T/CUMM (130-400); Red Blood Count 2.84 MC/CUMM (3.8-5.5); Red Cell Distribution Width 18.3 % (9.3-17.3); White Blood Count 12.9 T/CUMM (4-12)
[2019-06-07 05:08] LABS: Calcium 8.2 MG/DL (8.5-10.1); Osmolality,Calculated 270.2 MOS/KG (273-304)
[2019-06-07 05:14] LABS: Eosinophils 2 % (0-10); Hypochromasia 1+; Lymphocytes 16 % (20-55); Platelet Estimate Decreased; Segmented Neutrophils 67 % (50-85); Total Cells Counted 100
[2019-06-07 05:15] LABS: Atypical Lymphocytes Few; Microcytosis 1+
[2019-06-07] MEDS ORDERED: propofoL 200 MG/20 ML VIAL IV ONE (09:00)
[2019-06-07] MEDS ORDERED: LIDOCAINE 2% 5 ML VIAL ONE (09:00)
[2019-06-07] MEDS ORDERED: ESMOLOL 100 MG/10 ML VIAL IV ONE (09:00)
[2019-06-07] MEDS: DILTIAZEM CD 240 MG CAPSULE PO SCH (10:19)
[2019-06-07] MEDS: PIPERACILLIN/TAZOBACTAM 3,375 MG in SODIUM CHLORIDE 0.9% 100 ML IV SCH ×3 (10:20→23:54)
[2019-06-07] MEDS: ASPIRIN EC 81 MG TABLET PO SCH (10:28)
[2019-06-07] MEDS: METOPROLOL TARTRATE 100 MG TABLET PO SCH ×2 (10:28→21:19)
[2019-06-07] MEDS: POTASSIUM CHLORIDE 20 MEQ TABLET PO SCH ×2 (10:28→21:19)
[2019-06-07] MEDS: MAGNESIUM OXIDE 400 MG TABLET PO SCH ×2 (10:28→21:19)
[2019-06-07] MEDS: PANTOPRAZOLE 40 MG TABLET PO SCH (10:28)
[2019-06-08 05:12] LABS: Basophils % 0.2 % (0.0-0.8); Eosinophils % 0.4 % (0.00-10.9); Hematocrit 24.4 VOL% (42.0-52.0); Hemoglobin 7.7 GM/DL (14.0-18.0); Immature Granulocytes % 8.1 %; Immature Granulocytes Absolute 0.82 #; Lymphocytes # 1.3 10*3/uL (1.4-4.0); Lymphocytes % 12.4 % (21.2-54.2); Mean Corpuscular HGB Conc 31.6 GM/DL (32-36); Mean Platelet Volume 11.2 FL (9.6-12.0); Monocytes % 20.8 % (1.7-12.7); NRBC # 0.02 10*3/uL; Neutrophils % 58.1 % (38.7-73.9); Red Blood Count 2.68 MC/CUMM (3.8-5.5); Red Cell Distribution Width 18.1 % (9.3-17.3); White Blood Count 10.2 T/CUMM (4-12)
[2019-06-08 05:24] LABS: Platelet Count 82 T/CUMM (130-400)
[2019-06-08 05:32] LABS: Anisocytosis 1+; Band Neutrophils 2 % (0-10); Eosinophils 1 % (0-10); Hypochromasia 1+; Lymphocytes 12 % (20-55); Microcytosis 1+; Myelocytes 1 %; Nucleated Red Blood Cells 1 (0-5); Segmented Neutrophils 70 % (50-85); Total Cells Counted 100
[2019-06-08 05:33] LABS: Atypical Lymphocytes Few; Platelet Estimate Decreased
[2019-06-08 05:50] LABS: Calcium 8.3 MG/DL (8.5-10.1); Osmolality,Calculated 271.1 MOS/KG (273-304)
[2019-06-08] MEDS: PIPERACILLIN/TAZOBACTAM 3,375 MG in SODIUM CHLORIDE 0.9% 100 ML IV SCH ×3 (06:49→23:05)
[2019-06-08] MEDS: DILTIAZEM CD 240 MG CAPSULE PO SCH (09:42)
[2019-06-08] MEDS: ASPIRIN EC 81 MG TABLET PO SCH (09:42)
[2019-06-08] MEDS: METOPROLOL TARTRATE 100 MG TABLET PO SCH ×2 (09:42→21:56)
[2019-06-08] MEDS: POTASSIUM CHLORIDE 20 MEQ TABLET PO SCH ×2 (09:42→21:56)
[2019-06-08] MEDS: MAGNESIUM OXIDE 400 MG TABLET PO SCH ×2 (09:42→21:56)
[2019-06-08] MEDS: PANTOPRAZOLE 40 MG TABLET PO SCH (09:42)
[2019-06-08] MEDS ORDERED: BISACODYL 5 MG TABLET PO ONE (12:00)
[2019-06-08] MEDS ORDERED: POLYETHYLENE GLYCOL POWDER 255 GM BOTTLE PO ONE (18:00)
[2019-06-09] MEDS ORDERED: MAGNESIUM CITRATE 300 ML BOTTLE PO ONE (06:00)
[2019-06-09 06:24] LABS: Basophils % 0.3 % (0.0-0.8); Eosinophils % 0.3 % (0.00-10.9); Hematocrit 23.6 VOL% (42.0-52.0); Hemoglobin 7.6 GM/DL (14.0-18.0); INR 1.3; Immature Granulocytes % 5.4 %; Immature Granulocytes Absolute 0.57 #; Lymphocytes # 1.3 10*3/uL (1.4-4.0); Lymphocytes % 12.6 % (21.2-54.2); Mean Corpuscular HGB Conc 32.2 GM/DL (32-36); Mean Corpuscular Volume 89.4 FL (87-102); Mean Platelet Volume 11.9 FL (9.6-12.0); Monocytes % 19.9 % (1.7-12.7); NRBC # 0.04 10*3/uL; Neutrophils % 61.5 % (38.7-73.9); PT Patient Result 14.2 SECS (9.6-12.2); Red Blood Count 2.64 MC/CUMM (3.8-5.5); Red Cell Distribution Width 17.9 % (9.3-17.3); White Blood Count 10.6 T/CUMM (4-12)
[2019-06-09 06:25] LABS: Platelet Count 79 T/CUMM (130-400)
[2019-06-09 06:37] LABS: Calcium 8.2 MG/DL (8.5-10.1)
[2019-06-09 06:48] LABS: Hypochromasia 1+; Lymphocytes 14 % (20-55); Microcytosis 1+; Ovalocytes Slight; Platelet Estimate Decreased; Segmented Neutrophils 76 % (50-85); Total Cells Counted 100
[2019-06-09 06:49] LABS: Atypical Lymphocytes Few
[2019-06-09] MEDS ORDERED: SODIUM CHLORIDE 0.9% 250 ML IV ONE (07:22)
[2019-06-09] MEDS: SODIUM CHLORIDE 0.9% 1,000 ML IV SCH ×2 (08:30→22:40)
[2019-06-09] MEDS ORDERED: SODIUM CHLORIDE 0.9% 1,000 ML IV PRN (08:45)
[2019-06-09] MEDS: METOPROLOL TARTRATE 100 MG TABLET PO SCH ×2 (10:16→21:28)
[2019-06-09] MEDS: ASPIRIN EC 81 MG TABLET PO SCH (10:16)
[2019-06-09] MEDS: MAGNESIUM OXIDE 400 MG TABLET PO SCH ×2 (10:16→21:28)
[2019-06-09] MEDS: POTASSIUM CHLORIDE 20 MEQ TABLET PO SCH ×2 (10:17→21:28)
[2019-06-09] MEDS: PANTOPRAZOLE 40 MG TABLET PO SCH (10:17)
[2019-06-09] MEDS: DILTIAZEM CD 240 MG CAPSULE PO SCH (10:20)
[2019-06-09] MEDS: dilTIAZem Drip 125 MG/125 ML PREMIX IV SCH (12:23)
[2019-06-09] MEDS: PIPERACILLIN/TAZOBACTAM 3,375 MG in SODIUM CHLORIDE 0.9% 100 ML IV SCH ×3 (12:25→22:10)
[2019-06-09] MEDS ORDERED: METOPROLOL TARTRATE 5 MG/5 ML VIAL IV PRN (12:27)
[2019-06-09] MEDS: LACTATED RINGERS 1,000 ML IV SCH (12:28)
[2019-06-09] MEDS: METOPROLOL TARTRATE 5 MG/5 ML VIAL IV SCH ×22 (12:29→13:02)
[2019-06-09 17:14] LABS: Hematocrit 28.1 VOL% (42.0-52.0); Hemoglobin 9.1 GM/DL (14.0-18.0)
[2019-06-10] MEDS: dilTIAZem Drip 125 MG/125 ML PREMIX IV SCH ×2 (04:27→21:20)
[2019-06-10 06:09] LABS: Basophils % 0.3 % (0.0-0.8); Eosinophils % 0.2 % (0.00-10.9); Hematocrit 25.2 VOL% (42.0-52.0); Hemoglobin 8.2 GM/DL (14.0-18.0); Immature Granulocytes % 4.3 %; Immature Granulocytes Absolute 0.53 #; Lymphocytes # 1.4 10*3/uL (1.4-4.0); Mean Corpuscular HGB Conc 32.5 GM/DL (32-36); Mean Corpuscular Volume 90.6 FL (87-102); Mean Platelet Volume 11.3 FL (9.6-12.0); Monocytes % 19.8 % (1.7-12.7); NRBC # 0.03 10*3/uL; Neutrophils % 64.4 % (38.7-73.9); Platelet Count 72 T/CUMM (130-400); Red Blood Count 2.78 MC/CUMM (3.8-5.5); Red Cell Distribution Width 17.3 % (9.3-17.3); White Blood Count 12.4 T/CUMM (4-12)
[2019-06-10 06:29] LABS: Hypochromasia 1+; Lymphocytes 11 % (20-55); Platelet Estimate Decreased; Segmented Neutrophils 78 % (50-85); Total Cells Counted 100
[2019-06-10 06:30] LABS: Microcytosis 1+
[2019-06-10 06:43] LABS: Calcium 7.3 MG/DL (8.5-10.1)
[2019-06-10] MEDS ORDERED: LIDOCAINE 2% 5 ML VIAL ONE (09:00)
[2019-06-10] MEDS ORDERED: propofoL 200 MG/20 ML VIAL IV ONE (09:00)
[2019-06-10] MEDS ORDERED: ETOMIDATE 40 MG/20 ML VIAL IV ONE (09:00)
[2019-06-10] MEDS: DILTIAZEM CD 240 MG CAPSULE PO SCH (09:29)
[2019-06-10] MEDS: LACTATED RINGERS 1,000 ML IV SCH ×2 (09:30→09:32)
[2019-06-10] MEDS: SODIUM CHLORIDE 0.9% 1,000 ML IV SCH ×2 (09:30→16:48)
[2019-06-10] MEDS: ASPIRIN EC 81 MG TABLET PO SCH (09:31)
[2019-06-10] MEDS: PANTOPRAZOLE 40 MG TABLET PO SCH (09:32)
[2019-06-10] MEDS: POTASSIUM CHLORIDE 20 MEQ TABLET PO SCH ×2 (09:32→21:19)
[2019-06-10] MEDS: MAGNESIUM OXIDE 400 MG TABLET PO SCH ×2 (09:32→21:20)
[2019-06-10] MEDS: METOPROLOL TARTRATE 100 MG TABLET PO SCH ×2 (09:41→21:20)
[2019-06-10] MEDS: ACETAMINOPHEN 325 MG TABLET PO PRN (21:19)
[2019-06-11] MEDS: SODIUM CHLORIDE 0.9% 1,000 ML IV SCH ×3 (00:48→13:21)
[2019-06-11 04:51] LABS: Basophils % 0.1 % (0.0-0.8); Hematocrit 24.5 VOL% (42.0-52.0); Hemoglobin 7.8 GM/DL (14.0-18.0); Immature Granulocytes % 2.1 %; Lymphocytes # 1.3 10*3/uL (1.4-4.0); Mean Corpuscular HGB Conc 31.8 GM/DL (32-36); Mean Corpuscular Volume 91.1 FL (87-102); Mean Platelet Volume 11.3 FL (9.6-12.0); Neutrophils % 75.8 % (38.7-73.9); Platelet Count 58 T/CUMM (130-400); Red Blood Count 2.69 MC/CUMM (3.8-5.5); Red Cell Distribution Width 17.9 % (9.3-17.3); White Blood Count 14.3 T/CUMM (4-12)
[2019-06-11 05:15] LABS: Hypochromasia 1+; Lymphocytes 10 % (20-55); Ovalocytes Slight; Platelet Estimate Decreased; Segmented Neutrophils 84 % (50-85); Total Cells Counted 100
[2019-06-11 05:16] LABS: Microcytosis 1+
[2019-06-11 05:45] LABS: Calcium 7.8 MG/DL (8.5-10.1)
[2019-06-11] MEDS: POTASSIUM CHLORIDE 20 MEQ TABLET PO SCH ×2 (08:40→21:56)
[2019-06-11] MEDS: METOPROLOL TARTRATE 100 MG TABLET PO SCH ×2 (08:40→21:56)
[2019-06-11] MEDS: DILTIAZEM CD 240 MG CAPSULE PO SCH (08:40)
[2019-06-11] MEDS: PANTOPRAZOLE 40 MG TABLET PO SCH (08:40)
[2019-06-11] MEDS: ASPIRIN EC 81 MG TABLET PO SCH (08:40)
[2019-06-11] MEDS: MAGNESIUM OXIDE 400 MG TABLET PO SCH ×2 (08:40→21:56)
[2019-06-11] MEDS: LACTATED RINGERS 1,000 ML IV SCH (09:19)
[2019-06-11 11:39] LABS: Apearance,Urine CLEAR (Clear); Bilirubin,Urine Negative (Negative); Blood, Urine Moderate mg/dL (Negative); Glucose,Urine (UA) Negative (Negative); Ketones,Urine Negative (Negative); Mucus,Urine Occasional /LPF (Occasional); Nitrite,Urine Negative (Negative); Protein,Urine Negative; RBC,Urine 11 /HPF (0-4); Urine Color Amber (Yellow); Urine Specific Gravity 1.012 (1.001-1.035); WBC,Urine 1 /HPF (0-6)
[2019-06-11] MEDS: dilTIAZem Drip 125 MG/125 ML PREMIX IV SCH (12:31)
[2019-06-11] MEDS ORDERED: SODIUM CHLORIDE 0.9% 1,000 ML IV PRN (15:17)
[2019-06-12 06:23] LABS: Basophils % 0.2 % (0.0-0.8); Eosinophils % 0.1 % (0.00-10.9); Hematocrit 28.6 VOL% (42.0-52.0); Hemoglobin 9.1 GM/DL (14.0-18.0); Immature Granulocytes % 4.4 %; Immature Granulocytes Absolute 0.52 #; Lymphocytes % 8.4 % (21.2-54.2); Mean Corpuscular HGB Conc 31.8 GM/DL (32-36); Mean Corpuscular Volume 91.4 FL (87-102); Mean Platelet Volume 11.3 FL (9.6-12.0); Monocytes % 13.4 % (1.7-12.7); NRBC # 0.03 10*3/uL; Neutrophils % 73.5 % (38.7-73.9); Platelet Count 68 T/CUMM (130-400); Red Blood Count 3.13 MC/CUMM (3.8-5.5); Red Cell Distribution Width 17.4 % (9.3-17.3); White Blood Count 11.8 T/CUMM (4-12)
[2019-06-12 07:10] LABS: Calcium 7.9 MG/DL (8.5-10.1); Osmolality,Calculated 272.8 MOS/KG (273-304)
[2019-06-12] MEDS: LACTATED RINGERS 1,000 ML IV SCH (07:56)
[2019-06-12] MEDS: MAGNESIUM OXIDE 400 MG TABLET PO SCH ×2 (08:30→20:56)
[2019-06-12] MEDS: ASPIRIN EC 81 MG TABLET PO SCH (08:31)
[2019-06-12] MEDS: METOPROLOL TARTRATE 100 MG TABLET PO SCH ×2 (08:31→20:56)
[2019-06-12] MEDS: DILTIAZEM CD 240 MG CAPSULE PO SCH (08:31)
[2019-06-12] MEDS: POTASSIUM CHLORIDE 20 MEQ TABLET PO SCH ×2 (08:31→20:56)
[2019-06-12] MEDS: PANTOPRAZOLE 40 MG TABLET PO SCH (08:32)
[2019-06-12] MEDS: dilTIAZem Drip 125 MG/125 ML PREMIX IV SCH (09:25)
[2019-06-12 09:58] LABS: Band Neutrophils 4 % (0-10); Lymphocytes 2 % (20-55); Segmented Neutrophils 82 % (50-85); Total Cells Counted 100
[2019-06-12 09:59] LABS: Burr Cells Slight; Hypochromasia 2+; Platelet Estimate Decreased; Polychromasia Few
[2019-06-13 05:26] LABS: Basophils % 0.2 % (0.0-0.8); Eosinophils % 0.1 % (0.00-10.9); Hematocrit 29.1 VOL% (42.0-52.0); Hemoglobin 9.3 GM/DL (14.0-18.0); Immature Granulocytes % 4.5 %; Immature Granulocytes Absolute 0.51 #; Lymphocytes # 1.1 10*3/uL (1.4-4.0); Lymphocytes % 10.1 % (21.2-54.2); Mean Corpuscular Volume 89.8 FL (87-102); Mean Platelet Volume 11.2 FL (9.6-12.0); NRBC # 0.04 10*3/uL; Neutrophils % 70.1 % (38.7-73.9); Platelet Count 74 T/CUMM (130-400); Red Blood Count 3.24 MC/CUMM (3.8-5.5); Red Cell Distribution Width 17.2 % (9.3-17.3); White Blood Count 11.3 T/CUMM (4-12)
[2019-06-13 05:38] LABS: Calcium 8.3 MG/DL (8.5-10.1); Osmolality,Calculated 266.4 MOS/KG (273-304)
[2019-06-13 06:12] LABS: Band Neutrophils 1 % (0-10); Lymphocytes 5 % (20-55); Segmented Neutrophils 88 % (50-85); Total Cells Counted 100
[2019-06-13 06:13] LABS: Anisocytosis 1+; Platelet Estimate Decreased
[2019-06-13] MEDS: MAGNESIUM OXIDE 400 MG TABLET PO SCH ×2 (08:58→20:48)
[2019-06-13] MEDS: ASPIRIN EC 81 MG TABLET PO SCH (08:58)
[2019-06-13] MEDS: DILTIAZEM CD 240 MG CAPSULE PO SCH (08:58)
[2019-06-13] MEDS: POTASSIUM CHLORIDE 20 MEQ TABLET PO SCH ×2 (08:58→20:48)
[2019-06-13] MEDS: LACTATED RINGERS 1,000 ML IV SCH (08:58)
[2019-06-13] MEDS: PANTOPRAZOLE 40 MG TABLET PO SCH (08:58)
[2019-06-13] MEDS: METOPROLOL TARTRATE 100 MG TABLET PO SCH ×2 (08:58→20:48)
[2019-06-13] MEDS ORDERED: METOPROLOL TARTRATE 5 MG/5 ML VIAL IV STA (10:10)
[2019-06-13] MEDS: dilTIAZem Drip 125 MG/125 ML PREMIX IV SCH (12:06)
[2019-06-13] MEDS: clonazePAM 0.5 MG TABLET PO PRN (13:15)
[2019-06-14 04:48] LABS: Basophils % 0.3 % (0.0-0.8); Eosinophils % 0.3 % (0.00-10.9); Immature Granulocytes % 5.7 %; Immature Granulocytes Absolute 0.55 #; Lymphocytes # 1.1 10*3/uL (1.4-4.0); Lymphocytes % 11.3 % (21.2-54.2); Mean Corpuscular HGB Conc 32.1 GM/DL (32-36); Mean Corpuscular Volume 90.9 FL (87-102); Mean Platelet Volume 10.7 FL (9.6-12.0); Monocytes % 16.7 % (1.7-12.7); NRBC # 0.06 10*3/uL; Neutrophils % 65.7 % (38.7-73.9); Platelet Count 77 T/CUMM (130-400); Red Blood Count 3.08 MC/CUMM (3.8-5.5); Red Cell Distribution Width 17.4 % (9.3-17.3); White Blood Count 9.6 T/CUMM (4-12)
[2019-06-14 05:15] LABS: Calcium 8.2 MG/DL (8.5-10.1); Osmolality,Calculated 269.1 MOS/KG (273-304)
[2019-06-14 06:26] LABS: Band Neutrophils 1 % (0-10); Eosinophils 1 % (0-10); Hypochromasia 1+; Lymphocytes 20 % (20-55); Nucleated Red Blood Cells 1 (0-5); Segmented Neutrophils 65 % (50-85); Total Cells Counted 100
[2019-06-14 06:27] LABS: Microcytosis 1+; Platelet Estimate Decreased
[2019-06-14 06:28] LABS: Polychromasia Slight
[2019-06-14] MEDS: POTASSIUM CHLORIDE 20 MEQ TABLET PO SCH ×2 (08:48→21:09)
[2019-06-14] MEDS: DILTIAZEM CD 240 MG CAPSULE PO SCH ×2 (08:48→21:09)
[2019-06-14] MEDS: MAGNESIUM OXIDE 400 MG TABLET PO SCH ×2 (08:48→21:09)
[2019-06-14] MEDS: ASPIRIN EC 81 MG TABLET PO SCH (08:48)
[2019-06-14] MEDS: PANTOPRAZOLE 40 MG TABLET PO SCH (08:49)
[2019-06-14] MEDS ORDERED: METOPROLOL TARTRATE 5 MG/5 ML VIAL IV ONE ×2 (09:12→09:20)
[2019-06-14] MEDS: METOPROLOL TARTRATE 100 MG TABLET PO SCH ×2 (09:24→21:09)
[2019-06-14] MEDS: clonazePAM 0.5 MG TABLET PO PRN (11:26)
[2019-06-14] MEDS: LACTATED RINGERS 1,000 ML IV SCH (12:14)
[2019-06-14] MEDS: dilTIAZem Drip 125 MG/125 ML PREMIX IV SCH (12:15)
[2019-06-14] MEDS: DIGOXIN 0.5 MG/2 ML AMP IV SCH ×2 (13:50→21:09)
[2019-06-15] MEDS: DIGOXIN 0.5 MG/2 ML AMP IV SCH ×2 (02:40→10:29)
[2019-06-15 05:30] LABS: Basophils % 0.2 % (0.0-0.8); Eosinophils % 0.3 % (0.00-10.9); Hematocrit 26.2 VOL% (42.0-52.0); Hemoglobin 8.4 GM/DL (14.0-18.0); Immature Granulocytes % 6.1 %; Immature Granulocytes Absolute 0.65 #; Lymphocytes # 1.4 10*3/uL (1.4-4.0); Lymphocytes % 13.3 % (21.2-54.2); Mean Corpuscular HGB Conc 32.1 GM/DL (32-36); Mean Corpuscular Volume 89.7 FL (87-102); Monocytes % 16.9 % (1.7-12.7); NRBC # 0.05 10*3/uL; Neutrophils % 63.2 % (38.7-73.9); Platelet Count 78 T/CUMM (130-400); Red Blood Count 2.92 MC/CUMM (3.8-5.5); Red Cell Distribution Width 17.4 % (9.3-17.3); White Blood Count 10.6 T/CUMM (4-12)
[2019-06-15 05:52] LABS: Calcium 8.1 MG/DL (8.5-10.1); Osmolality,Calculated 269.2 MOS/KG (273-304)
[2019-06-15 05:53] LABS: Anisocytosis 1+; Band Neutrophils 3 % (0-10); Lymphocytes 12 % (20-55); Platelet Estimate Decreased; Segmented Neutrophils 78 % (50-85); Total Cells Counted 100
[2019-06-15 05:54] LABS: Hypochromasia 1+; Microcytosis 1+; Polychromasia Slight; Stomatocytes Few; Target Cells Slight
[2019-06-15] MEDS: LACTATED RINGERS 1,000 ML IV SCH (09:14)
[2019-06-15] MEDS: dilTIAZem Drip 125 MG/125 ML PREMIX IV SCH (09:14)
[2019-06-15] MEDS: ASPIRIN EC 81 MG TABLET PO SCH (09:16)
[2019-06-15] MEDS: MAGNESIUM OXIDE 400 MG TABLET PO SCH (09:16)
[2019-06-15] MEDS: METOPROLOL TARTRATE 100 MG TABLET PO SCH (09:16)
[2019-06-15] MEDS: POTASSIUM CHLORIDE 20 MEQ TABLET PO SCH (09:17)
[2019-06-15] MEDS: PANTOPRAZOLE 40 MG TABLET PO SCH (09:17)
[2019-06-15] MEDS: DILTIAZEM CD 240 MG CAPSULE PO SCH (09:17)
[2019-06-15] MEDS ORDERED: DIGOXIN 0.5 MG/2 ML AMP IV SCH (09:30)
[2019-06-15] MEDS ORDERED: DIGOXIN 0.5 MG/2 ML AMP ONE (10:40)
[2019-06-15 11:55] VITALS: BP 123/72
[2019-06-15] MEDS ORDERED: DIGOXIN 0.125 MG TABLET PO SCH (13:00)
== END 2019-06-15 13:56 | disposition home health service (06) | DRG 871 ==
LOC: N.EDINP 13:41 → N.ED 13:41 → N.4E 19:24 → SUATTDRO 06-02 15:41 → N.ICU 06-09 10:42 → N.TELEN 06-09 20:37
PROVIDERS: ADMIT Internal Medicine; ATTEND Internal Medicine Geriatric Medicine

== ENCOUNTER 2020-01-02 10:12 | Inpatient (IN) ==
[2020-01-02] MEDS ORDERED: ONDANSETRON 4 MG/2 ML VIAL IV PRN (13:43)
[2020-01-02] MEDS ORDERED: DEXTROSE 50% 25 GM/50 ML VIAL IV PRN (13:43)
[2020-01-02] MEDS ORDERED: hydrALAZINE 20 MG/1 ML VIAL IV PRN (13:43)
[2020-01-02] MEDS ORDERED: ACETAMINOPHEN 325 MG TABLET PO PRN (13:43)
[2020-01-02] MEDS ORDERED: GLUCAGON 1 MG VIAL IM PRN (13:43)
[2020-01-02 14:11] LABS: Basophils % 0.2 % (0.0-0.8); Hematocrit 30.4 VOL% (42.0-52.0); Immature Granulocytes % 2.8 %; Immature Granulocytes Absolute 0.36 #; Lymphocytes # 0.8 10*3/uL (1.4-4.0); Lymphocytes % 6.4 % (21.2-54.2); Mean Corpuscular HGB Conc 29.6 GM/DL (32-36); Mean Corpuscular Volume 90.5 FL (87-102); Mean Platelet Volume 11.2 FL (9.6-12.0); Monocytes % 8.4 % (1.7-12.7); NRBC # 0.02 10*3/uL; Neutrophils % 82.2 % (38.7-73.9); Platelet Count 55 T/CUMM (130-400); Red Blood Count 3.36 MC/CUMM (3.8-5.5); Red Cell Distribution Width 20.7 % (9.3-17.3); White Blood Count 12.8 T/CUMM (4-12)
[2020-01-02 14:28] LABS: Anisocytosis 1+; Hypochromasia 1+; Platelet Estimate Decreased; Polychromasia 1+
[2020-01-02 14:39] LABS: Thyroid Stimulating Hormone 1.85 uIU/ml (0.358-3.74); VLDL CHOLESTEROL 17.6 MG/DL
[2020-01-02] MEDS: CEFEPIME 1,000 MG in SODIUM CHLORIDE 0.9% 100 ML IV SCH ×2 (14:58→20:12)
[2020-01-02 16:08] LABS: Apearance,Urine CLEAR (Clear); Bilirubin,Urine Negative (Negative); Blood, Urine Moderate mg/dL (Negative); Glucose,Urine (UA) Negative (Negative); Ketones,Urine 5 mg/dL (Negative); Mucus,Urine Occasional /LPF (Occasional); Nitrite,Urine Negative (Negative); Protein,Urine Negative; Squamous Epithelial Cell,Urine Occasional /HPF (0-10); Urine Color Yellow (Yellow); Urine Urobilinogen < 2.0 EU/DL (0.2-1.0); WBC,Urine 1 /HPF (0-6)
[2020-01-02] MEDS: MAGNESIUM OXIDE 400 MG TABLET PO SCH (20:08)
[2020-01-02] MEDS: METOPROLOL TARTRATE 100 MG TABLET PO SCH (20:08)
[2020-01-02] MEDS: DILTIAZEM CD 240 MG CAPSULE PO SCH (20:08)
[2020-01-02] MEDS: ALBUTEROL/IPRATROPIUM 3 ML NEB RESP TX SCH (20:40)
[2020-01-02] MEDS: POTASSIUM CHLORIDE 20 MEQ TABLET PO SCH (22:27)
[2020-01-03] MEDS: ALBUTEROL/IPRATROPIUM 3 ML NEB RESP TX SCH ×4 (00:58→19:00)
[2020-01-03] MEDS: CEFEPIME 1,000 MG in SODIUM CHLORIDE 0.9% 100 ML IV SCH ×4 (02:15→20:34)
[2020-01-03 07:15] LABS: Basophils % 0.2 % (0.0-0.8); Hematocrit 30.1 VOL% (42.0-52.0); Hemoglobin 9.2 GM/DL (14.0-18.0); Immature Granulocytes % 2.7 %; Immature Granulocytes Absolute 0.34 #; Lymphocytes # 0.8 10*3/uL (1.4-4.0); Lymphocytes % 6.7 % (21.2-54.2); Mean Corpuscular HGB Conc 30.6 GM/DL (32-36); Mean Corpuscular Volume 87.8 FL (87-102); Mean Platelet Volume 10.9 FL (9.6-12.0); Monocytes % 20.9 % (1.7-12.7); Neutrophils % 69.5 % (38.7-73.9); Platelet Count 69 T/CUMM (130-400); Red Blood Count 3.43 MC/CUMM (3.8-5.5); White Blood Count 12.6 T/CUMM (4-12)
[2020-01-03 07:34] LABS: Albumin 3.5 G/DL (3.4-5.0); Band Neutrophils 1 % (0-10); Bilirubin,Total 1.7 MG/DL (0.2-1.0); Calcium 9.3 MG/DL (8.5-10.1); Hypochromasia 1+; Lymphocytes 9 % (20-55); Microcytosis Slight; Osmolality,Calculated 274.2 MOS/KG (273-304); Platelet Estimate Decreased; Segmented Neutrophils 75 % (50-85); Total Cells Counted 100; Total Protein 8.2 G/DL (6.4-8.3)
[2020-01-03] MEDS: methylPREDNISolone SOD SUC 40 MG/1 ML VIAL IV SCH ×2 (09:23→17:05)
[2020-01-03] MEDS: POTASSIUM CHLORIDE 20 MEQ TABLET PO SCH ×2 (09:27→20:30)
[2020-01-03] MEDS: MAGNESIUM OXIDE 400 MG TABLET PO SCH ×2 (09:27→20:30)
[2020-01-03] MEDS: METOPROLOL TARTRATE 100 MG TABLET PO SCH ×2 (09:27→20:30)
[2020-01-03] MEDS: DILTIAZEM CD 240 MG CAPSULE PO SCH ×2 (09:28→20:30)
[2020-01-03] MEDS: ASPIRIN EC 81 MG TABLET PO SCH (09:29)
[2020-01-03] MEDS: PANTOPRAZOLE 40 MG TABLET PO SCH (09:29)
[2020-01-03] MEDS ORDERED: DIGOXIN 0.125 MG TABLET PO SCH (13:00)
[2020-01-03] MEDS ORDERED: FUROSEMIDE 40 MG/4 ML VIAL IV ONE (15:59)
[2020-01-04] MEDS: methylPREDNISolone SOD SUC 40 MG/1 ML VIAL IV SCH (02:28)
[2020-01-04] MEDS: CEFEPIME 1,000 MG in SODIUM CHLORIDE 0.9% 100 ML IV SCH (02:30)
[2020-01-04] MEDS: ALBUTEROL/IPRATROPIUM 3 ML NEB RESP TX SCH ×2 (07:15)
[2020-01-04] MEDS ORDERED: methylPREDNISolone SOD SUC 40 MG/1 ML VIAL IV SCH (08:00)
[2020-01-04] MEDS ORDERED: cefTRIAXone 1,000 MG in SYRINGE 1 EACH IV SCH (08:00)
[2020-01-04 08:28] LABS: Basophils # 0.1 10*3/uL (0.0-0.2); Basophils % 0.4 % (0.0-0.8); Hematocrit 32.7 VOL% (42.0-52.0); Immature Granulocytes % 4.7 %; Immature Granulocytes Absolute 0.66 #; Lymphocytes # 0.8 10*3/uL (1.4-4.0); Lymphocytes % 5.8 % (21.2-54.2); Mean Corpuscular HGB Conc 30.6 GM/DL (32-36); Mean Platelet Volume 10.7 FL (9.6-12.0); Monocytes % 12.3 % (1.7-12.7); Neutrophils % 76.8 % (38.7-73.9); Red Blood Count 3.76 MC/CUMM (3.8-5.5); Red Cell Distribution Width 19.7 % (9.3-17.3)
[2020-01-04 08:30] LABS: Platelet Count 86 T/CUMM (130-400)
[2020-01-04 08:39] LABS: Calcium 9.2 MG/DL (8.5-10.1); Osmolality,Calculated 274.7 MOS/KG (273-304)
[2020-01-04 08:56] LABS: Hypochromasia 1+; Lymphocytes 8 % (20-55); Microcytosis Slight; Ovalocytes Slight; Platelet Estimate Decreased; Segmented Neutrophils 82 % (50-85); Total Cells Counted 100
[2020-01-04] MEDS: METOPROLOL TARTRATE 100 MG TABLET PO SCH (09:51)
[2020-01-04] MEDS: DILTIAZEM CD 240 MG CAPSULE PO SCH (09:52)
[2020-01-04] MEDS: PANTOPRAZOLE 40 MG TABLET PO SCH (09:52)
[2020-01-04] MEDS: POTASSIUM CHLORIDE 20 MEQ TABLET PO SCH (09:52)
[2020-01-04 09:55] VITALS: BP 142/57
[2020-01-04] MEDS: ASPIRIN EC 81 MG TABLET PO SCH (09:55)
[2020-01-04] MEDS: MAGNESIUM OXIDE 400 MG TABLET PO SCH (09:55)
== END 2020-01-04 12:39 | disposition home health service (06) | DRG 191 ==
LOC: SUATTDRO 11:59 → N.4E 11:59
PROVIDERS: ADMIT Internal Medicine; ATTEND Internal Medicine

== ENCOUNTER 2020-11-10 12:27 | Inpatient (IN) ==
[2020-11-10] MEDS ORDERED: CEFEPIME 1,000 MG in SODIUM CHLORIDE 0.9% 100 ML IV STA (13:24)
[2020-11-10 13:27] LABS: Basophils # 0.6 10*3/uL (0.0-0.2); Basophils % 0.9 % (0.0-0.8); Eosinophils # 0.1 10*3/uL (0.0-0.87); Eosinophils % 0.2 % (0.00-10.9); Hematocrit 25.5 VOL% (42.0-52.0); Hemoglobin 7.6 GM/DL (14.0-18.0); Immature Granulocytes % 10.6 %; Immature Granulocytes Absolute 7.16 #; Lymphocytes # 11.3 10*3/uL (1.4-4.0); Lymphocytes % 16.8 % (21.2-54.2); Mean Corpuscular HGB Conc 29.8 GM/DL (32-36); Mean Corpuscular Volume 90.1 FL (87-102); Monocytes % 38.2 % (1.7-12.7); NRBC # 6.89 10*3/uL; Neutrophils % 33.3 % (38.7-73.9); Platelet Count 94 T/CUMM (130-400); Red Blood Count 2.83 MC/CUMM (3.8-5.5)
[2020-11-10 13:29] LABS: White Blood Count 67.3 T/CUMM (4-12)
[2020-11-10 13:38] LABS: Albumin 2.6 G/DL (3.4-5.0); Bilirubin,Total 1.9 MG/DL (0.2-1.0); Calcium 7.7 MG/DL (8.5-10.1); Osmolality,Calculated 276.5 MOS/KG (273-304); Potassium 5.9 MMOL/L (3.5-5.1); Total Protein 6.7 G/DL (6.4-8.2)
[2020-11-10 13:46] LABS: Band Neutrophils 2 % (0-10); Lymphocytes 25 % (20-55); Nucleated Red Blood Cells 14 (0-5); Segmented Neutrophils 56 % (50-85); Total Cells Counted 100
[2020-11-10 13:47] LABS: Stomatocytes Few
[2020-11-10 13:48] LABS: Hypochromasia 2+; Ovalocytes Few; Platelet Estimate Adequate; Polychromasia Slight
[2020-11-10] MEDS ORDERED: LACTATED RINGERS 500 ML IV ONE (13:55)
[2020-11-10] MEDS ORDERED: DEXTROSE 50% 25 GM/50 ML VIAL IV PRN (14:50)
[2020-11-10] MEDS ORDERED: GLUCAGON 1 MG VIAL IM PRN (14:50)
[2020-11-10] MEDS ORDERED: SODIUM POLYSTYRENE SULFATE 15 GM/60 ML BOTTLE PO STA (14:56)
[2020-11-10] MEDS ORDERED: INSULIN REGULAR 10 UNIT, CALCIUM GLUCONATE 1,000 MG in DEXTROSE 10% 250 ML IV ONE ×2 (14:57→17:30)
[2020-11-10] MEDS ORDERED: FUROSEMIDE 40 MG/4 ML VIAL IV SCH (15:30)
[2020-11-10] MEDS: methylPREDNISolone SOD SUC 40 MG/1 ML VIAL IV SCH ×2 (15:37→22:46)
[2020-11-10] MEDS: ENOXAPARIN 30 MG/0.3 ML SYRINGE SUBCUT SCH (15:40)
[2020-11-10] MEDS: AZITHROMYCIN INJ 500 MG in SODIUM CHLORIDE 0.9% 250 ML IV SCH (15:52)
[2020-11-10] MEDS: ALBUTEROL/IPRATROPIUM 3 ML NEB RESP TX SCH (19:48)
[2020-11-10] MEDS: guaiFENesin/DM ER 600-30 MG TABLET PO SCH (22:46)
[2020-11-10] MEDS: MAGNESIUM OXIDE 400 MG TABLET PO SCH (22:46)
[2020-11-10] MEDS: BACITRACIN OINT 0.9 GM PACK TOP SCH (22:46)
[2020-11-10] MEDS: DILTIAZEM CD 240 MG CAPSULE PO SCH (22:46)
[2020-11-10] MEDS: FUROSEMIDE 40 MG/4 ML VIAL IV SCH (22:46)
[2020-11-10] MEDS: METOPROLOL TARTRATE 100 MG TABLET PO SCH (22:46)
[2020-11-11] MEDS: ALBUTEROL/IPRATROPIUM 3 ML NEB RESP TX SCH ×4 (01:51→20:15)
[2020-11-11 05:23] LABS: Basophils # 0.2 10*3/uL (0.0-0.2); Basophils % 0.5 % (0.0-0.8); Eosinophils # 0.1 10*3/uL (0.0-0.87); Eosinophils % 0.2 % (0.00-10.9); Hematocrit 23.1 VOL% (42.0-52.0); Immature Granulocytes Absolute 2.83 #; Lymphocytes # 8.1 10*3/uL (1.4-4.0); Lymphocytes % 20.2 % (21.2-54.2); Mean Corpuscular HGB Conc 30.3 GM/DL (32-36); Mean Corpuscular Volume 89.5 FL (87-102); NRBC # 1.66 10*3/uL; Neutrophils % 39.1 % (38.7-73.9); Platelet Count 77 T/CUMM (130-400); Red Blood Count 2.58 MC/CUMM (3.8-5.5); Red Cell Distribution Width 22.8 % (9.3-17.3)
[2020-11-11 05:43] LABS: White Blood Count 40.3 T/CUMM (4-12)
[2020-11-11 05:48] LABS: Calcium 7.7 MG/DL (8.5-10.1); Osmolality,Calculated 281.7 MOS/KG (273-304); Potassium 5.2 MMOL/L (3.5-5.1)
[2020-11-11] MEDS: methylPREDNISolone SOD SUC 40 MG/1 ML VIAL IV SCH ×2 (06:26→15:52)
[2020-11-11 07:09] LABS: Band Neutrophils 11 % (0-10); Eosinophils 1 % (0-10); Lymphocytes 23 % (20-55); Metamyelocytes 2 %; Nucleated Red Blood Cells 8 (0-5); Platelet Estimate Decreased; Segmented Neutrophils 42 % (50-85); Smudge Cells Few; Total Cells Counted 100
[2020-11-11 07:10] LABS: Anisocytosis 2+; Atypical Lymphocytes Few; Giant Platelets Few; Macrocytosis Slight; Polychromasia Slight
[2020-11-11] MEDS ORDERED: SODIUM CHLORIDE 0.9% 1,000 ML IV PRN (09:09)
[2020-11-11] MEDS: DILTIAZEM CD 240 MG CAPSULE PO SCH ×2 (09:34→21:25)
[2020-11-11] MEDS: MAGNESIUM OXIDE 400 MG TABLET PO SCH ×2 (09:34→21:25)
[2020-11-11] MEDS: PANTOPRAZOLE 40 MG TABLET PO SCH (09:34)
[2020-11-11] MEDS: METOPROLOL TARTRATE 100 MG TABLET PO SCH ×2 (09:35→21:25)
[2020-11-11] MEDS: guaiFENesin/DM ER 600-30 MG TABLET PO SCH ×2 (09:35→21:25)
[2020-11-11] MEDS: BACITRACIN OINT 0.9 GM PACK TOP SCH ×3 (09:35→21:25)
[2020-11-11] MEDS: ASPIRIN EC 81 MG TABLET PO SCH (09:35)
[2020-11-11] MEDS: FUROSEMIDE 40 MG/4 ML VIAL IV SCH ×2 (09:35→21:25)
[2020-11-11] MEDS: HYDROXYUREA 500 MG CAPSULE PO SCH ×2 (11:17→21:25)
[2020-11-11] MEDS ORDERED: DIGOXIN 0.125 MG TABLET PO PRN (13:00)
[2020-11-11] MEDS ORDERED: cefTRIAXone 1,000 MG in SODIUM CHLORIDE 0.9% 100 ML IV SCH (14:00)
[2020-11-11] MEDS: ENOXAPARIN 30 MG/0.3 ML SYRINGE SUBCUT SCH (15:52)
[2020-11-11] MEDS: AZITHROMYCIN INJ 500 MG in SODIUM CHLORIDE 0.9% 250 ML IV SCH (15:52)
[2020-11-11] MEDS: cefTRIAXone 1,000 MG in SODIUM CHLORIDE 0.9% 100 ML IV SCH (21:24)
[2020-11-12] MEDS: methylPREDNISolone SOD SUC 40 MG/1 ML VIAL IV SCH ×4 (00:36→22:09)
[2020-11-12] MEDS: ALBUTEROL/IPRATROPIUM 3 ML NEB RESP TX SCH ×4 (02:36→19:24)
[2020-11-12 06:45] LABS: Basophils # 0.1 10*3/uL (0.0-0.2); Basophils % 0.6 % (0.0-0.8); Eosinophils % 0.1 % (0.00-10.9); Hematocrit 26.5 VOL% (42.0-52.0); Hemoglobin 8.3 GM/DL (14.0-18.0); Immature Granulocytes % 8.6 %; Immature Granulocytes Absolute 1.64 #; Lymphocytes # 5.6 10*3/uL (1.4-4.0); Lymphocytes % 29.6 % (21.2-54.2); Mean Corpuscular HGB Conc 31.3 GM/DL (32-36); Mean Corpuscular Volume 87.2 FL (87-102); Monocytes % 12.6 % (1.7-12.7); NRBC # 0.27 10*3/uL; Neutrophils % 48.5 % (38.7-73.9); Platelet Count 49 T/CUMM (130-400); Red Blood Count 3.04 MC/CUMM (3.8-5.5); Red Cell Distribution Width 20.8 % (9.3-17.3)
[2020-11-12 07:03] LABS: Atypical Lymphocytes Few; Band Neutrophils 1 % (0-10); Hypochromasia 1+; Lymphocytes 22 % (20-55); Microcytosis 1+; Nucleated Red Blood Cells 1 (0-5); Platelet Estimate Decreased; Segmented Neutrophils 64 % (50-85); Total Cells Counted 100
[2020-11-12 07:08] LABS: Calcium 7.3 MG/DL (8.5-10.1); Osmolality,Calculated 291.9 MOS/KG (273-304); Potassium 5.3 MMOL/L (3.5-5.1)
[2020-11-12] MEDS: METOPROLOL TARTRATE 100 MG TABLET PO SCH ×2 (09:28→21:48)
[2020-11-12] MEDS: PANTOPRAZOLE 40 MG TABLET PO SCH (09:28)
[2020-11-12] MEDS: MAGNESIUM OXIDE 400 MG TABLET PO SCH ×2 (09:28→21:55)
[2020-11-12] MEDS: DILTIAZEM CD 240 MG CAPSULE PO SCH ×2 (09:28→21:48)
[2020-11-12] MEDS: HYDROXYUREA 500 MG CAPSULE PO SCH ×2 (09:28→21:48)
[2020-11-12] MEDS: FUROSEMIDE 20 MG TABLET PO SCH (09:28)
[2020-11-12] MEDS: guaiFENesin/DM ER 600-30 MG TABLET PO SCH ×2 (09:28→21:48)
[2020-11-12] MEDS: ASPIRIN EC 81 MG TABLET PO SCH (09:28)
[2020-11-12] MEDS: BACITRACIN OINT 0.9 GM PACK TOP SCH ×3 (09:29→21:48)
[2020-11-12] MEDS ORDERED: SODIUM POLYSTYRENE SULFATE 15 GM/60 ML BOTTLE PO STA (14:23)
[2020-11-12] MEDS ORDERED: ENOXAPARIN 40 MG/0.4 ML SYRINGE SUBCUT SCH (15:00)
[2020-11-12] MEDS: INSULIN LISPRO 100 UNIT/ML SUBCUT SCH ×2 (15:35→21:50)
[2020-11-12] MEDS ORDERED: INSULIN LISPRO 100 UNIT/ML SUBCUT ONE (18:35)
[2020-11-12] MEDS ORDERED: INSULIN GLARGINE 100 UNIT/ML SUBCUT SCH (21:00)
[2020-11-12] MEDS: cefTRIAXone 1,000 MG in SODIUM CHLORIDE 0.9% 100 ML IV SCH (21:55)
[2020-11-13] MEDS: ALBUTEROL/IPRATROPIUM 3 ML NEB RESP TX SCH ×2 (00:40→07:13)
[2020-11-13 04:51] LABS: Basophils # 0.1 10*3/uL (0.0-0.2); Basophils % 0.7 % (0.0-0.8); Hematocrit 26.2 VOL% (42.0-52.0); Hemoglobin 8.3 GM/DL (14.0-18.0); Immature Granulocytes % 10.2 %; Immature Granulocytes Absolute 1.11 #; Lymphocytes # 3.4 10*3/uL (1.4-4.0); Mean Corpuscular HGB Conc 31.7 GM/DL (32-36); Mean Corpuscular Volume 86.5 FL (87-102); Monocytes % 4.2 % (1.7-12.7); Neutrophils % 53.9 % (38.7-73.9); Red Blood Count 3.03 MC/CUMM (3.8-5.5); Red Cell Distribution Width 20.9 % (9.3-17.3); White Blood Count 10.8 T/CUMM (4-12)
[2020-11-13 05:03] LABS: Platelet Count 36 T/CUMM (130-400)
[2020-11-13 05:10] LABS: Calcium 7.1 MG/DL (8.5-10.1); Osmolality,Calculated 300.4 MOS/KG (273-304); Potassium 4.8 MMOL/L (3.5-5.1)
[2020-11-13 05:21] LABS: Band Neutrophils 2 % (0-10); Eosinophils 1 % (0-10); Lymphocytes 19 % (20-55); Nucleated Red Blood Cells 2 (0-5); Platelet Estimate Decreased; Segmented Neutrophils 66 % (50-85); Total Cells Counted 100
[2020-11-13 05:22] LABS: Atypical Lymphocytes Few; Hypochromasia 1+; Microcytosis 1+
[2020-11-13] MEDS: BACITRACIN OINT 0.9 GM PACK TOP SCH (10:16)
[2020-11-13] MEDS: MAGNESIUM OXIDE 400 MG TABLET PO SCH (10:16)
[2020-11-13] MEDS: DILTIAZEM CD 240 MG CAPSULE PO SCH (10:16)
[2020-11-13] MEDS: METOPROLOL TARTRATE 100 MG TABLET PO SCH (10:16)
[2020-11-13] MEDS: ASPIRIN EC 81 MG TABLET PO SCH (10:16)
[2020-11-13] MEDS: PANTOPRAZOLE 40 MG TABLET PO SCH (10:16)
[2020-11-13] MEDS: guaiFENesin/DM ER 600-30 MG TABLET PO SCH (10:16)
[2020-11-13] MEDS: HYDROXYUREA 500 MG CAPSULE PO SCH (10:17)
[2020-11-13] MEDS: methylPREDNISolone SOD SUC 40 MG/1 ML VIAL IV SCH (10:17)
[2020-11-13] MEDS: INSULIN LISPRO 100 UNIT/ML SUBCUT SCH ×2 (10:18→13:26)
[2020-11-13] MEDS: FUROSEMIDE 20 MG TABLET PO SCH (11:11)
[2020-11-13] MEDS ORDERED: SODIUM CHLORIDE 0.9% 250 ML IV ONE (11:31)
[2020-11-13 14:01] VITALS: BP 121/60
== END 2020-11-13 14:01 | disposition home or self-care (01) | DRG 190 ==
LOC: EDUNIT# → N.ED 12:27 → N.EDINP 14:50 → SUATTDRO 14:50 → N.4E 16:49
PROVIDERS: ADMIT Internal Medicine; ATTEND Internal Medicine